=== PATIENT | male | born 1960 | race Caucasian/White ===

== ENCOUNTER 2017-10-02 17:13 | Emergency (ER) | payer OTHER ==
[~2017-10-02] VITALS: Ht 185.4 cm; Wt 93.0 kg
[~2017-10-02 17:13] MED LIST: GLIPPOW9; LISI40TA; METFORMIN
[2017-10-02 18:30] LABS: Albumin 4.3 g/dL (3.4-5.0); BUN/Creatinine Ratio 11.7; Calcium 9.2 mg/dL (8.5-10.1); Potassium 4.3 mmol/L (3.5-5.1)
[2017-10-02 18:33] LABS: Bilirubin, Total 0.5 mg/dL (0.2-1.0); Total Protein 8.6 g/dL (6.4-8.2)
[2017-10-02 18:39] LABS: Basophils # (auto) 0 uL; Basophils % (auto) 0.8 % (0.0-2.0); Eosinophils # (auto) 0.2 uL; Eosinophils % (auto) 2.7 % (0.0-7.0); Lymphocytes # (auto) 2.5 uL; Mean Corpuscular Hemoglobin 31.1 pg (28.0-32.0); Mean Corpuscular Volume 91.2 fL (80.0-100.0); Monocytes # (auto) 0.4 uL; Monocytes % (auto) 7.1 % (0.0-12.0); Neutrophils # (auto) 2.6 uL; Neutrophils % (auto) 45.4 % (37.0-80.0); Nucleated Red Blood Cells % 0.1 %; Platelet Count (auto) 231 10^3/uL (140-450); Red Blood Cells 4.82 10^6/uL (4.5-5.90); Red Cell Distribution Width 13.6 % (11.8-14.3); White Blood Cell 5.7 10^3/uL (4.4-10.8)
[2017-10-02] MEDS ORDERED: SODIUM CHLORIDE 0.9% 500 ML IVB ONE (18:53)
[2017-10-02] MEDS ORDERED: PANTOPRAZOLE 40 MG/10 ML VIAL IV STA (18:53)
[2017-10-02 22:57] VITALS: BP 119/75
[2017-10-03] MEDS ORDERED: HYDROcodone-ACET 7.5/325MG TAB PO ONE (00:15)
== END 2017-10-03 00:20 | disposition home or self-care (01) ==
LOC: ER 17:13
DX: K80.20 Calculus of gallbladder without cholecystitis without obstruction (principal); G43.A1 Cyclical vomiting, in migraine, intractable; E11.9 Type 2 diabetes mellitus without complications; I10 Essential (primary) hypertension
CPT/HCPCS: 36415; 74176; 76705; 80053; 82150; 83690; 85025; 94761; 96361; 96374; 99285; C9113; J7030; 93005

== ENCOUNTER → 2022-11-21 | Outpatient (CLI) | payer OTHER ==
[~2022-11-21] MED LIST changes: -LISI40TA; +LISI40TA16
[2022-11-21 15:06] LABS: Albumin 4.1 g/dL (3.4-5.0); Calcium 9.4 mg/dL (8.5-10.1); Potassium 4.1 mmol/L (3.5-5.1)
[2022-11-21 15:11] LABS: Bilirubin, Total 0.4 mg/dL (0.2-1.0); Total Protein 7.9 g/dL (6.4-8.2)
== END | disposition home or self-care (01) ==
LOC: LAB 14:01
PROVIDERS: ATTEND Internal Medicine
DX: E87.5 Hyperkalemia (principal); E83.52 Hypercalcemia
CPT/HCPCS: 36415; 80053

== ENCOUNTER 2024-05-08 13:48 | Inpatient (IN) | payer MEDICARE, OTHER ==
[~2024-05-08] VITALS: Ht 185.4 cm; Wt 86.5 kg
--- NOTE | 2024-05-08 14:09 | ED.PDOC ---
HPI Comments 63 year old male presents to the ED with chief complaint of palpitations. Patient reports that he has been experiencing palpitations with associated chest tightness/pressure for the past week. Patient relays that he had went to a hospital in [place] a week ago for the same complaint, but was discharged same day. Patient notes he had SOB with cough 2 weeks ago due to respiratory infection. Patient denies any dizziness, nausea, vomiting, headache, SOB, or numbness. Chief Complaint: Palpitations Time Seen by MD: 14:06 Reviewed Notes: Nurses Notes, Medications, Allergies Allergies: Coded Allergies: NO KNOWN ALLERGIES (Unverified , 02/04/10) Home Meds Reported Medications Lisinopril (Lisinopril) 40 Mg Tab 02/04/10 [Metformin] No Conflict Check 02/04/10 Glipizide (Glipizide) Pow 02/04/10 Information Source: Patient Mode of Arrival: Ambulatory Severity: Moderate Timing: Weeks Duration: Since onset Prehospital treatment: None Location: Chest (L) Quality: Pressure, Tightness Onset: At Rest Cardiac Risk Factors: HTN, Diabetes PE Risk Factors: None History of: None Associated Signs and Symptoms: SOB Past Medical History PAST MEDICAL HISTORY: DM, HTN Surgical History: Appendectomy, Hernia Repair, Tonsillectomy Family History Family History: Reviewed,noncontributory to illness Social History Smoker: Non-Smoker Alcohol: Occasionally Drugs: Denies Drug Use Lives In: Home Constitutional: denies: chills, diaphoresis, fatigue, fever, malaise, sweats, weakness, others EENTM: denies: blurred vision, double vision, ear bleeding, ear discharge, ear drainage, ear pain, ear ringing, eye pain, eye redness, hearing loss, mouth pain, mouth swelling, nasal discharge, nose bleeding, nose congestion, nose colleen n, photophobia, tearing, throat pain, throat swelling, voice changes, others Respiratory: denies: cough, hemoptysis, orthopnea, SOB at rest, shortness of breath, SOB with excertion, stridor, wheezing, others Cardiovascular: reports: chest pain, palpitations; denies: dizzy spells, diaphoresis, Dyspnea on exertion, edema, irregular heart beat, left arm pain, lightheadedness, PND, syncope, others Gastrointestinal: denies: abdomen distended, abdominal pain, blood streaked bowels, constipated, diarrhea, dysphagia, difficulty swallowing, hematemesis, melena, nausea, poor appetite, poor fluid intake, rectal bleeding, rectal pain, vomiting, others Genitourinary: denies: burning, dysuria, flank pain, frequency, hematuria, incontinence, penile discharge, penile sore, pain, testicle pain, testicle swelling, urgency, others Neurological: denies: dizziness, fainting, headache, left sided numbness, left sided weakness, numbness, paresthesia, pre-existing deficit, right sided numbness, right sided weakness, seizure, speech problems, tingling, tremors, weakness, others Musculoskeletal: denies: back pain, gout, joint pain, joint swelling, muscle pain, muscle stiffness, neck pain, others Integumetry: denies: bruises, change in color, change in hair/nails, dryness, laceration, lesions, lumps, rash, wounds, others Allergic/Immunocompromised: denies: Difficulty Healing, Frequent Infections, Hives, Itching, others Hematologic/Lymphatic: denies: anemia, blood clots, easy bleeding, easy bruising, swollen glands, others Endocrine: denies: excessive hunger, excessive sweating, excessive thirst, excessive urination, flushing, intolerance to cold, intolerance to heat, unexplained weight gain, unexplained weight loss, others Psychiatric: denies: anxiety, bipolar disorder, depression, hopeless, panic disorder, schizophrenia, sleepless, suicidal, others All Other Systems: Reviewed and Negative Physical Exam General Appearance: Moderate Distress, Normal HEENT: Normal ENT Inspection, PERRL/EOMI Neck: Full Range of Motion, Non-Tender, Normal, Normal Inspection Respiratory: Chest Non-Tender, Lungs Clear, No Accessory Muscle Use, No Respiratory Distress, Normal Breath Sounds Cardiovascular: No Edema, No JVD, No Murmur, No Gallop, Normal Peripheral Pulses, Regular Rate/Rhythm Breast Exam: Deferred Gastrointestinal: No Organomegaly, Non Tender, No Pulsatile Mass, Normal Bowel Sounds, Soft Genitalia: Deferred Pelvic: Deferred Rectal: Deferred Extremities: No calf tenderness, Normal capillary refill, Normal inspection, Normal range of motion, Non-tender, No pedal edema Musculoskeletal : Apperance: Normal Neurologic: Alert, quahogger II-XII nml as Tested, No Motor Deficits, Normal Affect, Normal Mood, No Sensory Deficits Cerebellar Function: Normal Reflexes: Normal Skin: Dry, Normal Color, Warm Peripheral Pulses: 3+ Radial (R), 3+ Radial (L) Lymphatic: No Adenopathy Was a procedure done? Was a procedure done?: No CP Differential Dx Differential Diagnosis: A-fib, A-Flutter, Angina, Anxiety / Panic Attack, Atrial Dysrhythmia, Electrolyte Disorder X-Ray, Labs, Meds, VS Vital Signs Date Time Temp Pulse Resp B/P (MAP) Pulse Ox O2 Delivery O2 Flow Rate FiO2 05/08/24 13:59 98.3 74 18 130/67 (88) 97 05/08/24 13:55 75 Lab Test 05/08/24 14:52 05/08/24 14:01 05/08/24 13:56 Range/Units Troponin I High Sensitivity < 3 L < 3 L </=54 ng/L White Blood Count 5.1 4.4-10.8 10^3/uL Red Blood Count 4.56 4.5-5.90 10^6/uL Hemoglobin 14.1 13.5-17.5 g/dL Hematocrit 40.6 L 41.0-53.0 % Mean Corpuscular Volume 89.1 80.0-100.0 fL Mean Corpuscular Hemoglobin 30.9 28.0-32.0 pg Mean Corpuscular Hemoglobin Concent 34.7 32.0-36.0 g/dL Red Cell Distribution Width 13.1 11.8-14.3 % Platelet Count 152 140-450 10^3/uL Mean Platelet Volume 8.0 6.9-10.8 fL Neutrophils (%) (Auto) 63.7 37.0-80.0 % Lymphocytes (%) (Auto) 23.3 10.0-50.0 % Monocytes (%) (Auto) 10.0 0.0-12.0 % Eosinophils (%) (Auto) 2.2 0.0-7.0 % Basophils (%) (Auto) 0.8 0.0-2.0 % Neutrophils # (Auto) 3.2 1.6-8.6 10 ^3/uL Lymphocytes # (Auto) 1.2 0.4-5.4 10 ^3/uL Monocytes # (Auto) 0.5 0-1.3 10 ^3/uL Eosinophils # (Auto) 0.1 0-0.8 10 ^3/uL Basophils # (Auto) 0 0-0.2 10 ^3/uL Nucleated Red Blood Cells 0.1 % Urine Color Yellow Yellow Urine Clarity Clear Clear Urine pH 5.5 5.0-9.0 Urine Specific [place] 1.024 1.001-1.035 Urine Protein Trace H Negative Urine Ketones Negative Negative Urine Blood Negative Negative /uL Urine Nitrite Negative Negative Urine Bilirubin Negative Negative Urine Urobilinogen Normal Negative mg/dL Urine Leukocyte Esterase Negative Negative /uL Urine RBC <1 0 - 3 /hpf Urine Microscopic WBC 1 0-3 /HPF Urine Squamous Epithelial Cells None seen <5 /hpf Urine Bacteria None seen None Seen /hpf Urine Mucus Few None Seen Urine Glucose 3+ H Normal mg/dL Sodium Level 135 L 136-145 mmol/L Potassium Level 4.9 3.5-5.1 mmol/L Chloride Level 103 98-107 mmol/L Carbon Dioxide Level 26 20-31 mmol/L Anion Gap 6 5-15 Blood Urea Nitrogen 18 9-23 mg/dL Creatinine 1.30 0.700-1.30 mg/dL Glomerular Filtration Rate Calc 61 >90 mL/min BUN/Creatinine Ratio 13.8 10.0-20.0 Serum Glucose 260 H 74-106 mg/dL Calcium Level 9.7 8.7-10.4 mg/dL Total Bilirubin 0.5 0.2-1.0 mg/dL Aspartate Amino Transferase (AST) 17 13-40 U/L Alanine Aminotransferase (ALT) 23 7-40 U/L Alkaline Phosphatase 82 46-116 U/L Total Protein 6.9 5.7-8.2 g/dL Albumin 4.7 3.2-4.8 g/dL POC Glucose 265 H 70-106 mg/dl Chest XR: FINDINGS: Lungs: Mild bibasilar atelectasis. No focal consolidation. No pneumothorax or pleural effusion. Cardiac: Heart size is within normal limits. Pulmonary vasculature: Unremarkable. Mediastinum/suzanna: Unremarkable. Bones: No acute osseous abnormality identified. Other: No other significant findings. IMPRESSION: No evidence of acute disease in the chest. Patient alert. Complaining of chest pain. Vitals stable. Answering questions. Chest x-ray reviewed does not show any acute changes. Blood sugar elevated. He has trace protein. Risk factors for coronary artery disease. Stress test. Echocardiogram. Cardiology consultation. Explained to the patient. Continue cardiac monitoring. Was given aspirin. EKG reviewed does not show any acute changes. Images Reviewed?: Images reviewed and evaluated by me Time of 1ST Reevaluation: 15:06 Reevaluation 1ST: Unchanged Patient Education/Counseling: Diagnosis, Treatment Family Education/Counseling: No Family Present Departure 1 Departure Time of Disposition: 14:52 Impression: Primary Impression: Chest pain of unknown etiology Additional Impressions: Uncontrolled diabetes mellitus Qualified Codes: E13.65 - Other specified diabetes mellitus with hyperglycemia Microalbuminuria Disposition: ADMITTED INPATIENT Admit to: Med Surg Condition: Guarded Critical Care Note Critical Care Time?: No Stability Stability form required: No Heart Score Heart Score: Heart Score Response (Comments) Value History Moderate Suspicious 1 EKG Normal 0 Age >65 2 Risk Factors >3 or Hx ASHD 2 Troponin Normal limit 0 Total 5 I personally scribed for MARJORIE SIU MD ([email or web address]) on 05/08/24 at 14:09. Electronically submitted by Modesto Weinstein ([email or web address]). I personally scribed for MARJORIE SIU MD ([email or web address]) on 05/08/24 at 14:39. Electronically submitted by Modesto Weinstein ([email or web address]). MARJORIE SIU MD May 08, 2024 14:09
[2024-05-08 14:18] LABS: Basophils # (auto) 0 10 ^3/uL (0-0.2); Basophils % (auto) 0.8 % (0.0-2.0); Eosinophils # (auto) 0.1 10 ^3/uL (0-0.8); Eosinophils % (auto) 2.2 % (0.0-7.0); Hematocrit 40.6 % (41.0-53.0); Hemoglobin 14.1 g/dL (13.5-17.5); Lymphocytes # (auto) 1.2 10 ^3/uL (0.4-5.4); Lymphocytes % (auto) 23.3 % (10.0-50.0); Mean Corpuscular Hemoglobin 30.9 pg (28.0-32.0); Mean Corpuscular Hgb Conc. 34.7 g/dL (32.0-36.0); Mean Corpuscular Volume 89.1 fL (80.0-100.0); Monocytes # (auto) 0.5 10 ^3/uL (0-1.3); Neutrophils # (auto) 3.2 10 ^3/uL (1.6-8.6); Neutrophils % (auto) 63.7 % (37.0-80.0); Nucleated Red Blood Cells % 0.1 %; Platelet Count (auto) 152 10^3/uL (140-450); Red Blood Cells 4.56 10^6/uL (4.5-5.90); Red Cell Distribution Width 13.1 % (11.8-14.3); White Blood Cell 5.1 10^3/uL (4.4-10.8)
--- NOTE | 2024-05-08 14:22 | DVH ---
CLINICAL INFORMATION: 63 years old, Male; PALPITATIONS. TECHNIQUE: Single AP portable chest radiograph was obtained. COMPARISON: None FINDINGS: Lungs: Mild bibasilar atelectasis. No focal consolidation. No pneumothorax or pleural effusion. Cardiac: Heart size is within normal limits. Pulmonary vasculature: Unremarkable. Mediastinum/suzanna: Unremarkable. Bones: No acute osseous abnormality identified. Other: No other significant findings. IMPRESSION: No evidence of acute disease in the chest.
[2024-05-08 14:27] LABS: Urine Bacteria None Seen /hpf (None Seen)
[2024-05-08 14:39] LABS: Alanine Aminotransferase 23 U/L (7-40); Albumin 4.7 g/dL (3.2-4.8); Alkaline Phosphatase 82 U/L (46-116); Calcium 9.7 mg/dL (8.7-10.4); Carbon Dioxide 26 mmol/L (20-31); Chloride 103 mmol/L (98-107); Potassium 4.9 mmol/L (3.5-5.1)
[2024-05-08 14:40] LABS: Anion Gap 6 (5-15); BUN/Creatinine Ratio 13.8 (10.0-20.0); Bilirubin, Total 0.5 mg/dL (0.2-1.0); Blood Urea Nitrogen 18 mg/dL (9-23); Total Protein 6.9 g/dL (5.7-8.2); Urine Blood Negative /uL (Negative); Urine Clarity Clear (Clear); Urine Color Yellow (Yellow); Urine Mucus FEW (None Seen); Urine Protein, UAD TRACE (Negative); Urine Specific Gravity 1.024 (1.001-1.035); Urine Squamous Epithelial Cell None Seen /hpf (<5); Urine Urobilinogen Normal (Negative); Urine WBC 1 /HPF (0-3); Urine pH 5.5 (5.0-9.0)
[2024-05-08 14:44] LABS: Glucose 260 mg/dL (74-106); Sodium 135 mmol/L (136-145)
[2024-05-08 14:48] LABS: Aspartate Aminotransferase 17 U/L (13-40)
[2024-05-08] MEDS ORDERED: MORPHINE SULFATE INJ 2 MG/ml SYRG IV PRN (21:00)
[2024-05-08] MEDS ORDERED: NITROGLYCERIN 0.4 MG SL TAB SL PRN (21:00)
[2024-05-08] MEDS ORDERED: DEXTROSE (50%) 50ML SYRG IV PRN (21:30)
[2024-05-08] MEDS ORDERED: ATORVASTATIN 20 MG TAB PO ONE (21:30)
[2024-05-08 21:33] VITALS: PULSE 69; RESP 16; O2SAT 98
[2024-05-08] MEDS: NITROGLYCERIN 0.4 MG SL TAB SL ONE (21:36)
[2024-05-08] MEDS: TAMSULOSIN HYDROCHLORIDE 0.4 MG CAP PO ONE (21:41)
[2024-05-08] MEDS: ASPirin 325 MG TAB PO ONE (21:42)
[2024-05-08] MEDS: ACCU-CHEK COMFORT CURVE STRIP VI SCH (21:42)
[2024-05-08] MEDS: LISINOPRIL 20 MG TAB PO ONE (21:42)
[2024-05-08] MEDS: ATORVASTATIN 20 MG TAB PO SCH (21:49)
[2024-05-08] MEDS: InsuLIN REG 1unit/0.01ml Soln (100units/ml) SC SCH (21:49)
--- NOTE | 2024-05-08 21:52 | DVHHPRES ---
History of Present Illness Resident Creating Document: PRIMITIVO KAMINSKI RESIDENT Reason for Visit: Palpitations and chest pain History of Present Illness This is a 63-year-old male who comes in to the ED with chief complain of palpitations and chest pain. He has a past medical history relevant for hypertension, type 2 diabetes, BPH. He currently takes lisinopril 20 mg p.o. q.d., metformin, insulin, tamsulosin. He is an ex-smoker, drinks alcohol occasionally and denies any illicit drug use. Patient states that since last week he has been experiencing episodes of palpitations associated with chest pain, he stated that these episodes occur around 3 times per day and last about 15-20 minutes. It mainly occurs on exertion and it is relieved by rest. He states that the chest pain is pressure- like, midsternal, localized, associated with headaches and shortness of breath as well as generalized weakness. He currently denies any chest pain, dizziness, lightheadedness, abdominal pain, nausea, vomiting, diarrhea, chills, general malaise, fever multiple, shortness for breath. On the ED patient was assessed, EKG was unremarkable, chest x-ray was unremarkable, troponins were normal, chest pain subsided without any intervention. Patient states that two weeks ago he was also sick due to upper respiratory infection, he also stated his is currently sick with the same illness. Cardiovascular: HTN Endocrine: Diabetes Past Surgical History: Appendectomy, Hernia Repair, Tonsillectomy Smoke: Quit ALCOHOL: occassional Drugs: None Review of Systems Constitutional: No: Fever, Chills, Sweats, Weakness, Malaise, Other Eyes: No: Pain, Vision change, Conjunctivae inflammation, Eyelid inflammation, Other, Redness ENT: No: Ear pain, Ear discharge, Nose pain, Nose discharge, Nose congestion, Mouth pain, Mouth swelling, Throat pain, Throat swelling, Other Respiratory: Cough, Shortness of breath, SOB with excertion; No: Dry, Wheezing, Hemoptysis, Pleuritic Pain, Sputum, Wheezing, Other Cardiovascular: Chest Pain, Palpitations; No: Orthopnea, Paroxysmal Noc. Dyspnea, Edema, Lt Headedness, Other Gastrointestinal: No: Nausea, Vomiting, Abdominal Pain, Diarrhea, Constipation, Melena, Hematochezia, Other Genitourinary: No Dysuria, No Frequency, No Incontinence, No Hematuria, No Retention, No Other Musculoskeletal: No: other, neck pain, shoulder pain, arm pain, back pain, hand pain, leg pain, foot pain Skin: No: Rash, Lesions, Jaundice, Bruising, Other Neurological: No: Weakness, Numbness, Incoordination, Change in speech, Confusion, Seizures, Other Allergies: Coded Allergies: NO KNOWN ALLERGIES (Unverified , 02/04/10) Medications Current Medications Medications Dose Ordered Sig/Mildred Route Start Time Stop Time Status Last Admin Dose Admin Nitroglycerin 0.4 mg Q5MINP PRN SL 05/08/24 21:00 Morphine Sulfate 2 mg Q30M PRN IV 05/08/24 21:00 Exam Vital Signs Vital Signs Date Time Temp Pulse Resp B/P (MAP) Pulse Ox O2 Delivery O2 Flow Rate FiO2 05/08/24 21:33 99.1 69 16 142/77 (98) 98 99.1 General Appearance: Alert, Oriented X3, Cooperative, No acute distress HEENT: Atraumatic, PERRLA, EOMI, Mucous membr. moist/pink Respiratory: Clear to auscultation, Normal air movement Cardiovascular: Regular rate, Normal S1, Normal S2, No murmurs Abdominal: Normal bowel sounds, Soft, No tenderness, No hepatospenomegaly Extremities: No clubbing, No cyanosis, No edema, Normal pulses Skin: No rashes, No breakdown, No significant lesion Neuro: Normal gait, Normal speech, Strength at 5/5 X4 ext, Normal tone Psych/Mental Status: Mental status NL, Mood NL Labs/Xrays Labs Test 05/08/24 14:52 05/08/24 14:01 05/08/24 13:56 Range/Units Troponin I High Sensitivity < 3 L </=54 ng/L White Blood Count 5.1 4.4-10.8 10^3/uL Red Blood Count 4.56 4.5-5.90 10^6/uL Hemoglobin 14.1 13.5-17.5 g/dL Hematocrit 40.6 L 41.0-53.0 % Mean Corpuscular Volume 89.1 80.0-100.0 fL Mean Corpuscular Hemoglobin 30.9 28.0-32.0 pg Mean Corpuscular Hemoglobin Concent 34.7 32.0-36.0 g/dL Red Cell Distribution Width 13.1 11.8-14.3 % Platelet Count 152 140-450 10^3/uL Mean Platelet Volume 8.0 6.9-10.8 fL Neutrophils (%) (Auto) 63.7 37.0-80.0 % Lymphocytes (%) (Auto) 23.3 10.0-50.0 % Monocytes (%) (Auto) 10.0 0.0-12.0 % Eosinophils (%) (Auto) 2.2 0.0-7.0 % Basophils (%) (Auto) 0.8 0.0-2.0 % Neutrophils # (Auto) 3.2 1.6-8.6 10 ^3/uL Lymphocytes # (Auto) 1.2 0.4-5.4 10 ^3/uL Monocytes # (Auto) 0.5 0-1.3 10 ^3/uL Eosinophils # (Auto) 0.1 0-0.8 10 ^3/uL Basophils # (Auto) 0 0-0.2 10 ^3/uL Nucleated Red Blood Cells 0.1 % Urine Color Yellow Yellow Urine Clarity Clear Clear Urine pH 5.5 5.0-9.0 Urine Specific [place] 1.024 1.001-1.035 Urine Protein Trace H Negative Urine Ketones Negative Negative Urine Blood Negative Negative /uL Urine Nitrite Negative Negative Urine Bilirubin Negative Negative Urine Urobilinogen Normal Negative mg/dL Urine Leukocyte Esterase Negative Negative /uL Urine RBC <1 0 - 3 /hpf Urine Microscopic WBC 1 0-3 /HPF Urine Squamous Epithelial Cells None seen <5 /hpf Urine Bacteria None seen None Seen /hpf Urine Mucus Few None Seen Urine Glucose 3+ H Normal mg/dL Sodium Level 135 L 136-145 mmol/L Potassium Level 4.9 3.5-5.1 mmol/L Chloride Level 103 98-107 mmol/L Carbon Dioxide Level 26 20-31 mmol/L Anion Gap 6 5-15 Blood Urea Nitrogen 18 9-23 mg/dL Creatinine 1.30 0.700-1.30 mg/dL Glomerular Filtration Rate Calc 61 >90 mL/min BUN/Creatinine Ratio 13.8 10.0-20.0 Serum Glucose 260 H 74-106 mg/dL Calcium Level 9.7 8.7-10.4 mg/dL Total Bilirubin 0.5 0.2-1.0 mg/dL Aspartate Amino Transferase (AST) 17 13-40 U/L Alanine Aminotransferase (ALT) 23 7-40 U/L Alkaline Phosphatase 82 46-116 U/L Total Protein 6.9 5.7-8.2 g/dL Albumin 4.7 3.2-4.8 g/dL POC Glucose 265 H 70-106 mg/dl Assessment/Plan Assessment/Plan #Chest pain, typical, likely due to Unstable angina Cardiac diet now and keep NPO after midnight Aspirin 325 mg p.o. once, and continue with aspirin 81 mg p.o. q.d. Lipitor 80 mg p.o. HS Lisinopril 20 mg p.o. q.d. Order lipid panel, TSH Morphine IV p.r.n. Nitroglycerin SL p.r.n. Pending COVID and flu test Pending UDS Order echocardiogram Ordered cardiology consult for possible angiogram #Type 2 diabetes, uncontrolled Pending hemoglobin A1c SSI moderate a.c. HS #Hypertension, controlled Lisinopril 20 mg p.o. q.d. #BPH Continue Tamsulosin Goals of care were discussed for 30 minutes. Full code. Case was discussed with Dr. Muniz Plan discussed with: Patient My Orders Orders - PRIMITIVO KAMINSKI RESIDENT Procedure Category Date Status Time Admit ADMIT 05/08/24 Transmitted 20:59 Nitroglycerin [facility] 05/08/24 In Process Sublingual (Ntrostat 21:00 Morphine Sulfate [facility] 05/08/24 In Process Injection 21:00 Notify Of Changes [facility] 05/08/24 In Process From Base 20:59 Group Sales Representative For [facility] 05/08/24 In Process 24 Hours 20:59 Emergency Dysrhythmia [facility] 05/08/24 In Process Protocol 20:59 Rhythm Strips Once [facility] 05/08/24 In Process Every Shift 20:59 Cardiac DIET 05/09/24 Transmitted Diet-2gna,Lofat,Lochol Breakfast Npo After Midnight DIET 05/09/24 Transmitted Breakfast Glucose Blood [facility] 05/08/24 Transmitted (Accu-Chek Comfort 22:00 Bedtime Insulin Scale PH[facility] 05/08/24 Transmitted 22:00 Moderate Insulin Ss PH[facility] 05/09/24 Transmitted 07:00 Dextrose 50% Syringe PHA 05/08/24 Transmitted 21:30 Lisinopril Tablet PHA 05/08/24 Transmitted (Zestril Tablet) 21:30 Lisinopril Tablet PHA 05/09/24 Transmitted (Zestril Tablet) 10:00 Aspirin Tablet PHA 05/09/24 Transmitted 10:00 Atorvastatin (Lipitor) PHA 05/08/24 Transmitted 21:30 Atorvastatin (Lipitor) PHA 05/08/24 Transmitted 22:00 Complete Blood Count LAB 05/09/24 Verified 04:00 Basic Metabolic Panel LAB 05/09/24 Verified 04:00 Hemoglobin A1c LAB 05/08/24 Transmitted 21:25 Drug Screen LAB 05/08/24 Transmitted 21:25 PTPTT LAB 05/08/24 Transmitted 21:25 Troponin-I Hs LAB 05/09/24 Verified 04:00 Tamsulosin PHA 05/08/24 Transmitted Hydrochloride (Flomax) 21:30 Tamsulosin PHA 05/09/24 Transmitted Hydrochloride (Flomax) 18:00 Covid19 Antigen Radha LAB 05/08/24 Transmitted Rapid Influenza A&B LAB 05/08/24 Transmitted 21:25 * Cardiology Consult CONS 05/08/24 Transmitted 21:25 Thyroid Stimulating LAB 05/08/24 Transmitted Hormone 21:25 Lipid Panel LAB 05/08/24 Transmitted 21:25 Echo 2d Mode Cardiac US 05/08/24 Transmitted DOP 21:25 Erythrocyte LAB 05/08/24 Transmitted Sedimentation Rate 21:25 C-Reactive Protein LAB 05/08/24 Transmitted 21:25 Date of Service: May 08, 2024 Billing Provider: GONZALO MUNIZ MD Common Visit Codes: [id number] INP/OBS CARE (HIGH) Secondary Visit Codes: 62802-[id number] CARE PLAN 30 MINUTES PRIMITIVO KAMINSKI RESIDENT May 08, 2024 21:52 GONZALO MUNIZ MD May 09, 2024 23:07
[2024-05-08 22:17] LABS: CRP High Sensitivity 0.38 mg/dL (<1.0)
[2024-05-08 22:28] LABS: INR 1.01 (0.9-1.15); Partial Thromboplastin Time 22.5 SEC (24.5-34.5); Prothrombin Time 10.7 sec (9.3-11.8)
[2024-05-08 22:45] LABS: Erythrocyte Sedimentation Rate 16 mm/hr (0-20)
[2024-05-09] VITALS (9 sets, daily range): BP systolic 108–131; BP diastolic 54–65; PULSE 55–72; RESP 12–20; TEMP 98–99.3; O2SAT 93–98
[2024-05-09] MEDS ORDERED: LISI20TA56 PO (00:10)
[2024-05-09] MEDS ORDERED: INSR100KIT IV (00:10)
[2024-05-09] MEDS ORDERED: METF-372 PO (00:10)
[2024-05-09] MEDS ORDERED: TAMS-35 PO (00:10)
[2024-05-09 02:57] LABS: COVID19 ANTIGEN SOFIA FIA NEGATIVE (NEGATIVE)
[2024-05-09] MEDS: InsuLIN REG 1unit/0.01ml Soln (100units/ml) SC SCH (06:08)
[2024-05-09 06:53] LABS: Rapid Influenza B Negative (Negative)
[2024-05-09 06:57] LABS: Rapid Influenza A Positive (Negative)
--- NOTE | 2024-05-09 07:02 | ECG ---
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
[2024-05-09 07:45] LABS: Basophils # (auto) 0 10 ^3/uL (0-0.2); Basophils % (auto) 0.6 % (0.0-2.0); Eosinophils # (auto) 0.1 10 ^3/uL (0-0.8); Eosinophils % (auto) 2.7 % (0.0-7.0); Hematocrit 38.4 % (41.0-53.0); Hemoglobin 12.9 g/dL (13.5-17.5); Lymphocytes # (auto) 1.1 10 ^3/uL (0.4-5.4); Lymphocytes % (auto) 31.7 % (10.0-50.0); Mean Corpuscular Hemoglobin 30.1 pg (28.0-32.0); Mean Corpuscular Hgb Conc. 33.7 g/dL (32.0-36.0); Mean Corpuscular Volume 89.2 fL (80.0-100.0); Monocytes # (auto) 0.4 10 ^3/uL (0-1.3); Monocytes % (auto) 10.9 % (0.0-12.0); Neutrophils # (auto) 1.9 10 ^3/uL (1.6-8.6); Neutrophils % (auto) 54.1 % (37.0-80.0); Nucleated Red Blood Cells % 0.1 %; Platelet Count (auto) 129 10^3/uL (140-450); White Blood Cell 3.4 10^3/uL (4.4-10.8)
[2024-05-09 07:49] LABS: Anion Gap 5 (5-15); Carbon Dioxide 25 mmol/L (20-31); Chloride 106 mmol/L (98-107); Potassium 4.4 mmol/L (3.5-5.1); Sodium 136 mmol/L (136-145)
[2024-05-09 07:52] LABS: Calcium 9.4 mg/dL (8.7-10.4)
[2024-05-09 08:02] LABS: Glucose 233 mg/dL (74-106)
[2024-05-09 08:29] LABS: BUN/Creatinine Ratio 13.6 (10.0-20.0); Blood Urea Nitrogen 15 mg/dL (9-23)
[2024-05-09] MEDS: MAGNESIUM SULFATE 1GM/100ML 100 ML IV SCH (10:04)
--- NOTE | 2024-05-09 11:12 | DVHINCON2 ---
Date Seen: May 09, 2024 Referring Physician MD William resident Reason for Consultation Unstable angina History of Present Illness This is a 63-year-old male patient who presents to emergency room with chief complaint of palpitations. The patient reports that he initially began experiencing palpitations eight days ago while in [place]. He reports he was climbing a ladder when suddenly he began to feel palpitations. He states he drove to [place] to a hospital to be assessed. He states that the palpitations subsided so he left the hospital. He reports that the palpitations began again approximately two days ago and have been intermittent so now he comes to the emergency room for further evaluation. He also mentions occasional chest pain. He describes the pain as provoked with exertion and deep inhalation, pressure-like in nature, midsternal, and nonradiating. He denies any associated symptoms such as shortness of breath, lightheadedness or dizziness. Cardiology has now been consulted for further workup. Initial twelve lead electrocardiogram reveals normal sinus rhythm with nonspecific ST segment changes to inferior leads and artifact. Serial troponin levels have been negative. Significant past medical history includes hypertension, dyslipidemia, type 2 diabetes mellitus, and benign prostatic hyperplasia. Past Medical History Past medical history reviewed. No other significant than mentioned above. Past Surgical History Right rotator cuff repair Multiple surgeries to left leg Family History: Patient reports no known family medical history. Family History Family history reviewed. Social History The patient has a five pack-year history, quit smoking approximately 20 years ag o Patient denies any alcohol use Patient denies any illicit drug use Allergies: Coded Allergies: NO KNOWN ALLERGIES (Unverified , 02/04/10) Home Meds Reported Medications Insulin Regular (Human) (INSULIN DRIP KIT (OPEN HEART ONLY)) 100 Units/100 Ml Iv, 100 UNITS IV, INJ 05/09/24 Lisinopril (Lisinopril) 20 Mg Tab, 1 TAB PO DAILY, #30 TAB 5 Refills 05/09/24 Tamsulosin Hcl (Flomax) 0.4 Mg Cap, 0.4 MG PO, CAP 05/09/24 Metformin Hydrochloride (Metformin Hcl) 1,000 Mg Tab, 1 TAB PO BID, #60 TAB 5 Refills 05/09/24 Home Meds Home medications reviewed. Current Medications Current Medications Medications (Trade) Dose Ordered Sig/Mildred Route PRN Reason Start Time Stop Time Status Last Admin Nitroglycerin (Ntrostat Sublingual) 0.4 mg Q5MINP PRN SL FOR CHEST PAIN 05/08/24 21:00 Morphine Sulfate 2 mg Q30M PRN IV FOR CHEST PAIN 05/08/24 21:00 Diagnostic Test (Pha) (Accu-Chek Comfort Curve T) 1 strip ACHS 05/08/24 22:00 05/09/24 06:06 Insulin Human Regular (InsuLIN R) HS SC 05/08/24 22:00 05/08/24 21:49 Insulin Human Regular (InsuLIN R) AC SC 05/09/24 07:00 05/09/24 06:08 Dextrose 50 ml UD PRN IV Blood Sugar LESS THAN 60 05/08/24 21:30 Lisinopril (Zestril Tablet) 20 mg DAILY PO 05/09/24 10:00 Aspirin 81 mg DAILY PO 05/09/24 10:00 Atorvastatin Calcium (Lipitor) 80 mg HS PO 05/08/24 22:00 05/08/24 21:49 Tamsulosin HCl (Flomax) 0.4 mg QPM PO 05/09/24 18:00 Oseltamivir Phosphate (Tamiflu 75MG Capsule) 75 mg Q12HR PO 05/09/24 10:00 05/14/24 09:59 Magnesium Sulfate/ Dextrose 100 ml @ 100 mls/hr Q1HR IV 05/09/24 09:00 05/09/24 10:59 DC 05/09/24 10:04 Insulin Glargine (Lantus) 15 units DAILY@1000 SC 05/10/24 10:00 Review of Systems Constitutional: No symptom reported Ears, Nose, & Throat: No symptom reported Eyes: No symptom reported Neurological: No symptoms reported Pulmonary/Respiratory: No symptoms reported Cardiovascular: Palpitations Gastrointestinal: No symptom reported Genitourinary: No symptom reported Musculoskeletal: No symptom reported Skin: No symptom reported Psychiatric: No symptom reported Endocrine: No symptom reported Hematologic/Lymphatic: No symptom reported Vital Signs Vital Signs Date Time Temp Pulse Resp B/P (MAP) Pulse Ox O2 Delivery O2 Flow Rate FiO2 05/09/24 08:00 98 Room Air* 0 21 05/09/24 08:00 70 05/09/24 04:46 98.2 14 121/60 (80) 98.2 Physical Exam General Appearance: Cooperative. Well-developed. Well-nourished. No acute distress. Pulmonary/Respiratory: Clear, bilateral breaths sounds. Cardiovascular/Chest: Regular rate and rhythm. Peripheral Pulses: 2+ Radial (R). 2+ Radial (L). 2+ Pedal (R). 2+ Pedal (L) Abdominal Exam: Normal bowel sounds. Ankle Exam: Negative ankle edema Lower extremities: Negative lower extremity edema Neuro/Mental Status: A/OX4, coherent. Thoughts/Psych: Normal thought pattern. Appropriate mood and affect. Good judgment and insight. Appearance: No acute distress. Skin Exam: Normal inspection. Normal color. Warm and dry. Labs/Diagnostic Data Labs Test 05/09/24 06:20 05/09/24 06:04 05/09/24 04:00 05/09/24 02:00 Range/Units White Blood Count 3.4 #L 4.4-10.8 10^3/uL Red Blood Count 4.30 L 4.5-5.90 10^6/uL Hemoglobin 12.9 L 13.5-17.5 g/dL Hematocrit 38.4 L 41.0-53.0 % Mean Corpuscular Volume 89.2 80.0-100.0 fL Mean Corpuscular Hemoglobin 30.1 28.0-32.0 pg Mean Corpuscular Hemoglobin Concent 33.7 32.0-36.0 g/dL Red Cell Distribution Width 13.0 11.8-14.3 % Platelet Count 129 L 140-450 10^3/uL Mean Platelet Volume 8.5 6.9-10.8 fL Neutrophils (%) (Auto) 54.1 37.0-80.0 % Lymphocytes (%) (Auto) 31.7 10.0-50.0 % Monocytes (%) (Auto) 10.9 0.0-12.0 % Eosinophils (%) (Auto) 2.7 0.0-7.0 % Basophils (%) (Auto) 0.6 0.0-2.0 % Neutrophils # (Auto) 1.9 1.6-8.6 10 ^3/uL Lymphocytes # (Auto) 1.1 0.4-5.4 10 ^3/uL Monocytes # (Auto) 0.4 0-1.3 10 ^3/uL Eosinophils # (Auto) 0.1 0-0.8 10 ^3/uL Basophils # (Auto) 0 0-0.2 10 ^3/uL Nucleated Red Blood Cells 0.1 % Sodium Level 136 136-145 mmol/L Potassium Level 4.4 3.5-5.1 mmol/L Chloride Level 106 98-107 mmol/L Carbon Dioxide Level 25 20-31 mmol/L Anion Gap 5 5-15 Blood Urea Nitrogen 15 9-23 mg/dL Creatinine 1.10 0.700-1.30 mg/dL Glomerular Filtration Rate Calc 75 >90 mL/min BUN/Creatinine Ratio 13.6 10.0-20.0 Serum Glucose 233 H 74-106 mg/dL Calcium Level 9.4 8.7-10.4 mg/dL Magnesium Level 1.5 L 1.6-2.6 mg/dL Troponin I High Sensitivity < 3 L </=54 ng/L POC Glucose 226 H 70-106 mg/dl Influenza Type A Antigen Positive Negative Influenza Type B Antigen Negative Negative SARS-CoV-2 Antigen (Rapid) Negative NEGATIVE Test 05/08/24 21:52 05/08/24 14:01 Range/Units Erythrocyte Sedimentation Rate 16 0-20 mm/hr Prothrombin Time 10.7 9.3-11.8 sec Prothrombin Time INR 1.01 0.9-1.15 Activated Partial Thromboplast Time 22.5 L 24.5-34.5 SEC Hemoglobin A1c 11.0 H <5.7 % A1C C-Reactive Protein High Sensitivity 0.38 <1.0 mg/dL Triglycerides Level 78 < 150 mg/dL Cholesterol Level 138 < 200 mg/dL LDL Cholesterol 79 < 100 mg/dL HDL Cholesterol 49 40-59 mg/dL Thyroid Stimulating Hormone (TSH) 1.73 0.55-4.78 uIU/mL Urine Color Yellow Yellow Urine Clarity Clear Clear Urine pH 5.5 5.0-9.0 Urine Specific [place] 1.024 1.001-1.035 Urine Protein Trace H Negative Urine Ketones Negative Negative Urine Blood Negative Negative /uL Urine Nitrite Negative Negative Urine Bilirubin Negative Negative Urine Urobilinogen Normal Negative mg/dL Urine Leukocyte Esterase Negative Negative /uL Urine RBC <1 0 - 3 /hpf Urine Microscopic WBC 1 0-3 /HPF Urine Squamous Epithelial Cells None seen <5 /hpf Urine Bacteria None seen None Seen /hpf Urine Mucus Few None Seen Urine Glucose 3+ H Normal mg/dL Total Bilirubin 0.5 0.2-1.0 mg/dL Aspartate Amino Transferase (AST) 17 13-40 U/L Alanine Aminotransferase (ALT) 23 7-40 U/L Alkaline Phosphatase 82 46-116 U/L Total Protein 6.9 5.7-8.2 g/dL Albumin 4.7 3.2-4.8 g/dL Assessment Chest pain, rule out coronary ischemia Palpitations, rule out cardiac arrhythmia Influenza type A positive Hypertension Dyslipidemia Type 2 diabetes mellitus, uncontrolled (Hgb A1c 11.0%) BPH Plan/Recommendation We will continue with the following plan/recommendations (Dr. Shafer): * Echocardiogram reveals EF 60-65% without any regional wall motion abnormalities * Chest pain protocol * HEART score: 3 points * Blood pressure control * Lipid-lowering agent * Nuclear stress test Case discussed with . We will schedule the patient for a nuclear stress test at first availability on 05/09/24. Thank you for allowing us to care for this patient. Please call with any questions or concerns. Critical care time spent: 41 minutes This medical document was created using an electronic medical record system with voice recognition software and computerized dictation system. Although this document has been carefully reviewed, there might still be some phonetic and typographical errors. Occasional wrong-word or ``sound-alike substitutions may have occurred due to the inherent limitations of voice recognition software. These areas are purely typographical due to imperfections of the software programs and do not reflect any compromise in the patient's medical care. Please read the chart carefully and recognize, using context, where these s ubstitutions have occurred. Plan discussed with: Patient NYHA Physical activity limitations: NA Date of Service: May 09, 2024 Billing Provider: JOSE ANGEL SHAFER MD Cardiology Common Codes: [id number] INP/OBS CARE (High) Cardiology Consultation Codes: [id number] CONSULT <45MIN DEVIN RUIZ ACCOUNT ASSISTANT May 09, 2024 11:12
--- NOTE | 2024-05-09 11:36 | DVHSR ---
APPROVED REPORT EXAM: Two-dimensional and M-mode echocardiogram with Doppler and color Doppler. Blood Pressure: 121/60 mmHg INDICATION Unstable angina RISK FACTORS Height: 6'1", Weight: 190 DIMENSIONS LVDd5.2 (3.8-5.7cm)LA (2D)3.8 (1.9-4.0cm)Aortic Root3.3 (2.0-3.7cm) LVDs3.8 (2.5-4.0cm)LA (MM) (1.9-4.0cm)Aortic Cusp Exc2.2 (1.5-2.0cm) EF (%) 60.0 (55-70%)Rt. Atrium4.0 (1.9-4.0cm)Asc. Aorta3.3 cm IVSd0.7 (0.7-1.1cm)RV (D)3.9 (1.8-2.4cm) PWd1.0 (0.7-1.1cm) Mitral Valve MitralMitral Stenosis E wave0.88m/sMV Mean GR.mmHg A wave0.89m/sMV Peak GR.mmHg E/A ratio1.02D MVAcm2 DECEL [id number] 1/2 Timems Aortic Valve Aortic ValveAortic Stenosis V11.40m/Brittany Mean GR.5mmHg V21.47m/Brittany Peak GR.9mmHg LVOT Diameter2.4 (1.8-2.4cm)Doppler AVA4.31cm2 Pulmonic Valve V20.92m/s Tricuspid Valve TR Velocity2.28m/s [id number] LEFT VENTRICLE The left ventricle is of normal size. Wall thickness is normal. Ejection fraction is normal and is estimated at 60-65%. There is no regional wall motion abnormalities. Diastolic function is indeterm inate. E to E prime ratio is in the indeterminate range. RIGHT VENTRICLE The right ventricle is of normal size. Systolic function is normal. ATRIA Both atria are of normal size. MITRAL VALVE Normal structure and function. No significant mitral regurgitation. PULMONIC VALVE Likely normal. TRICUSPID VALVE Normal structure and function. There is trace tricuspid regurgitation. PA systolic pressure is leyla mated at 25-30 mm Hg. AORTIC VALVE Normal in structure and function. GREAT VESSELS The aortic root and proximal ascending aorta are of normal size. PERICARDIAL EFFUSION No significant pericardial effusion. IVC is of normal size and collapses normally with inspiration. Other Information Quality : Technically LimitedRhythm : Technically limited study due to body habitus. Conclusion Normal left ventricular size and systolic function. Ejection fraction is estimated at 60-65%. Normal right ventricular size and systolic function. No hemodynamically significant valvular disease. No evidence of pulmonary hypertension.
[2024-05-09] MEDS: REGADENOSON 0.4 MG/5 ML SYRG IV ONE ×2 (12:28→12:35)
--- NOTE | 2024-05-09 12:52 | ECG ---
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
[2024-05-09] MEDS: ASPirin 81 mg TAB PO SCH (13:38)
[2024-05-09] MEDS: OSELTAMIVIR 75 MG CAP PO SCH (13:39)
--- NOTE | 2024-05-09 15:23 | DVHSR ---
APPROVED REPORT Exam: Nuclear Stress Test BMI: 0 Stress Test Details HR Max Heart Rate (APMHR): 155 bpm Target HR (85% APMHR): 132 bpm BP ECG Stress ECG Conclusion Review of the myocardial perfusion images demonstrated a moderate size area of moderate intensity red uced radiotracer uptake in the inferior wall and inferior apex. This appears to be more intense in t he resting images. Otherwise, there is homogeneous radiotracer uptake throughout the rest of the lef t ventricular myocardium. Left ventricular volumes are normal. Ejection fraction is normal and is e stimated at 59%. No gated images are available to assess for wall motion. Impression: 1. Fixed defect in the inferior wall and inferior-apex that could represent prior infarction versus a ttenuation artifact. 2. Normal left ventricular systolic function. NM EXAM: Myocardial Perfusion REST/STRESS Imaging Protocol: Rest Tc-99m/Stress Tc-99m 1 day Resting Data Rest SPECT myocardial perfusion imaging was performed in supine position 60 minutes following the int ravenous injection of 12 mCi of Tc-99m Sestamibi. Time of rest injection: 1157 Time of rest imagin Administration Route: IV Administration Site: Left Hand Pharmacologic Stress Pharmacologic stress test was performed by injecting Regadenoson 0.4 mg IV push followed by the intra venous injection of 32 mCi of Tc-99m Sestamibi. Time of stress injection: 1236 Time of stress imagin Administration Route: IV Administration Site: Left Hand Gated Stress SPECT was performed 60 minutes after stress injection. The images were gated to evaluate regional wall motion and calculate left ventricular ejection fracti on. Stress only was performed in the Supine position. Nuclear Conclusion ECG Findings: negative for ischemia Clinical Findings: negative for ischemia Nuclear Findings: negative for ischemia Exercise Capacity: not assessed Left Ventricular Function: normal Risk Study: low Review of the myocardial perfusion images demonstrated a moderate size area of moderate intensity red uced radiotracer uptake in the inferior wall and inferior apex. This appears to be more intense in t he resting images. Otherwise, there is homogeneous radiotracer uptake throughout the rest of the lef t ventricular myocardium. Left ventricular volumes are normal. Ejection fraction is normal and is e stimated at 59%. No gated images are available to assess for wall motion. Impression: 1. Fixed defect in the inferior wall and inferior-apex that could represent prior infarction versus a ttenuation artifact. 2. Normal left ventricular systolic function.
[2024-05-09] MEDS: LISINOPRIL 20 MG TAB PO SCH (15:27)
[2024-05-09] MEDS: INSULIN LANTUS (GLARGINE) 1 /0.01ml (100units/ml) SC ONE (15:28)
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
[2024-05-09] MEDS: SODIUM CHLORIDE 0.9% 1,000 ML IV ONE (17:36)
[2024-05-09] MEDS: AZITHROMYCIN 250 MG TAB PO ONE (17:38)
[2024-05-09] MEDS: TAMSULOSIN HYDROCHLORIDE 0.4 MG CAP PO SCH (17:39)
[2024-05-09] MEDS: ATORVASTATIN 20 MG TAB PO SCH (21:22)
[2024-05-10] VITALS (7 sets, daily range): BP systolic 96–132; BP diastolic 55–72; PULSE 48–63; RESP 17–20; TEMP 36.8; O2SAT 93–96
[2024-05-10] MEDS: ACETAMINOPHEN 325 MG TAB PO ONE (00:04)
[2024-05-10 06:04] LABS: Basophils # (auto) 0 10 ^3/uL (0-0.2); Basophils % (auto) 0.5 % (0.0-2.0); Eosinophils # (auto) 0.1 10 ^3/uL (0-0.8); Eosinophils % (auto) 2.7 % (0.0-7.0); Hematocrit 39.3 % (41.0-53.0); Hemoglobin 13.3 g/dL (13.5-17.5); Lymphocytes # (auto) 1.5 10 ^3/uL (0.4-5.4); Lymphocytes % (auto) 43.5 % (10.0-50.0); Mean Corpuscular Hemoglobin 30.4 pg (28.0-32.0); Mean Corpuscular Volume 89.4 fL (80.0-100.0); Monocytes # (auto) 0.3 10 ^3/uL (0-1.3); Monocytes % (auto) 8.6 % (0.0-12.0); Neutrophils # (auto) 1.5 10 ^3/uL (1.6-8.6); Neutrophils % (auto) 44.7 % (37.0-80.0); Nucleated Red Blood Cells % 0.1 %; Platelet Count (auto) 116 10^3/uL (140-450); Red Blood Cells 4.39 10^6/uL (4.5-5.90); Red Cell Distribution Width 12.9 % (11.8-14.3); White Blood Cell 3.4 10^3/uL (4.4-10.8)
[2024-05-10 06:15] LABS: Anion Gap 8 (5-15); Carbon Dioxide 25 mmol/L (20-31); Chloride 103 mmol/L (98-107); Potassium 4.1 mmol/L (3.5-5.1); Sodium 136 mmol/L (136-145)
[2024-05-10 06:17] LABS: Calcium 9.4 mg/dL (8.7-10.4)
[2024-05-10 06:22] LABS: BUN/Creatinine Ratio 12.5 (10.0-20.0); Blood Urea Nitrogen 13 mg/dL (9-23); Glucose 167 mg/dL (74-106)
[2024-05-10] MEDS: AZITHROMYCIN 250 MG TAB PO SCH (10:53)
[2024-05-10] MEDS: INSULIN LANTUS (GLARGINE) 1 /0.01ml (100units/ml) SC SCH (11:10)
[2024-05-10] MEDS ORDERED: TAMIFLU PO (15:29)
--- NOTE | 2024-05-10 15:33 | DVHDS2 ---
Discharge Summary Date of Admission May 08, 2024 at 20:59 Date of Discharge: May 10, 2024 Admitting Diagnosis # acute chest pain, rule out ACS # palpitations likely due to dehydration with underlying influenza infection # influenza infection # uncontrolled type 2 diabetes mellitus with hyperglycemia # hypertension controlled # BPH # hypomagnesemia Labs/Diagnostic Data: Laboratory Results Test 05/10/24 12:13 05/10/24 05:25 05/09/24 06:20 05/09/24 04:00 POC Glucose 279 mg/dl (70-106) White Blood Count 3.4 10^3/uL (4.4-10.8) Red Blood Count 4.39 10^6/uL (4.5-5.90) Hemoglobin 13.3 g/dL (13.5-17.5) Hematocrit 39.3 % (41.0-53.0) Mean Corpuscular Volume 89.4 fL (80.0-100.0) Mean Corpuscular Hemoglobin 30.4 pg (28.0-32.0) Mean Corpuscular Hemoglobin Concent 34.0 g/dL (32.0-36.0) Red Cell Distribution Width 12.9 % (11.8-14.3) Platelet Count 116 10^3/uL (140-450) Mean Platelet Volume 8.3 fL (6.9-10.8) Neutrophils (%) (Auto) 44.7 % (37.0-80.0) Lymphocytes (%) (Auto) 43.5 % (10.0-50.0) Monocytes (%) (Auto) 8.6 % (0.0-12.0) Eosinophils (%) (Auto) 2.7 % (0.0-7.0) Basophils (%) (Auto) 0.5 % (0.0-2.0) Neutrophils # (Auto) 1.5 10 ^3/uL (1.6-8.6) Lymphocytes # (Auto) 1.5 10 ^3/uL (0.4-5.4) Monocytes # (Auto) 0.3 10 ^3/uL (0-1.3) Eosinophils # (Auto) 0.1 10 ^3/uL (0-0.8) Basophils # (Auto) 0 10 ^3/uL (0-0.2) Nucleated Red Blood Cells 0.1 % Sodium Level 136 mmol/L (136-145) Potassium Level 4.1 mmol/L (3.5-5.1) Chloride Level 103 mmol/L (98-107) Carbon Dioxide Level 25 mmol/L (20-31) Anion Gap 8 (5-15) Blood Urea Nitrogen 13 mg/dL (9-23) Creatinine 1.04 mg/dL (0.700-1.30) Glomerular Filtration Rate Calc 80 mL/min (>90) BUN/Creatinine Ratio 12.5 (10.0-20.0) Serum Glucose 167 mg/dL (74-106) Calcium Level 9.4 mg/dL (8.7-10.4) Magnesium Level 1.5 mg/dL (1.6-2.6) Troponin I High Sensitivity < 3 ng/L (</=54) Influenza Type A Antigen Positive (Negative) Influenza Type B Antigen Negative (Negative) Test 05/09/24 02:00 05/08/24 21:52 05/08/24 14:01 SARS-CoV-2 Antigen (Rapid) Negative (NEGATIVE) Erythrocyte Sedimentation Rate 16 mm/hr (0-20) Prothrombin Time 10.7 sec (9.3-11.8) Prothrombin Time INR 1.01 (0.9-1.15) Activated Partial Thromboplast Time 22.5 SEC (24.5-34.5) Hemoglobin A1c 11.0 % A1C (<5.7) C-Reactive Protein High Sensitivity 0.38 mg/dL (<1.0) Triglycerides Level 78 mg/dL (< 150) Cholesterol Level 138 mg/dL (< 200) LDL Cholesterol 79 mg/dL (< 100) HDL Cholesterol 49 mg/dL (40-59) Thyroid Stimulating Hormone (TSH) 1.73 uIU/mL (0.55-4.78) Urine Color Yellow (Yellow) Urine Clarity Clear (Clear) Urine pH 5.5 (5.0-9.0) Urine Specific Spring 1.024 (1.001-1.035) Urine Protein Trace (Negative) Urine Ketones Negative (Negative) Urine Blood Negative /uL (Negative) Urine Nitrite Negative (Negative) Urine Bilirubin Negative (Negative) Urine Urobilinogen Normal mg/dL (Negative) Urine Leukocyte Esterase Negative /uL (Negative) Urine RBC <1 /hpf (0 - 3) Urine Microscopic WBC 1 /HPF (0-3) Urine Squamous Epithelial Cells None seen /hpf (<5) Urine Bacteria None seen /hpf (None Seen) Urine Mucus Few (None Seen) Urine Glucose 3+ mg/dL (Normal) Total Bilirubin 0.5 mg/dL (0.2-1.0) Aspartate Amino Transferase (AST) 17 U/L (13-40) Alanine Aminotransferase (ALT) 23 U/L (7-40) Alkaline Phosphatase 82 U/L (46-116) Total Protein 6.9 g/dL (5.7-8.2) Albumin 4.7 g/dL (3.2-4.8) Other Laboratory Tests 05/10/24 05:25 Brief Hx & Hospital Course: This is a 63 years old male with past medical history of hypertension and hyperlipidemia come to emergency department because of heart palpitation and chest pain. The patient said that he had been sick due to upper respiratory infection two weeks prior to come to hospital. The patient feel dizzy, palpitation and chest pain. The patient was admitted. Workup was done.. The patient's troponin level three set is negative. The patient was seen by abrasive mixer's and subsequently had a Cardiolite stress test. The stress test showed: 1. Fixed defect in the inferior wall and inferior-apex that could represent prior infarction versus attenuation artifact. 2. Normal left ventricular systolic function. The patient also was found to have influenza A positive and was treated with Tamiflu and empiric with IV antibiotic Rocephin and Zithromax. The patient subsequently doing better. Today the patient did not complain of any shortness a breath or heart palpitation. So I am going to discharge the patient home. Advised the patient to follow up with primary care physician 1-2 weeks. Follow up with abrasive mixer per schedule. Activity as tolerated. Diet per home diet. Recommend low-salt low-cholesterol diet. Physical exam: HEENT: Normocephalic atraumatic pupils equal react to light and accommodation. Extraocular muscles intact, conjunctiva pink, oropharynx moist, no thrush, no exudate. Lymphatic: No lymphadenopathy Cardiovascular exam: S1, S2 was heard. No murmurs, rubs, gallops Lung: Clear on auscultation bilaterally, no wheeze, rale, rhonchi. GI: Abdominal soft, nondistended, nontenderness, positive bowel sounds. Extremity: No crepitus, cyanosis, edema. Pedal pulses present bilateral. Full range of motion. Skin: Normal turgor, no rash. Psych: Alert, oriented x3. Neurology: No focal deficits, cranial nerve II to XII grossly intact. This medical document was created using an electronic medical record system with [employer] direct computerized dictation system. Although this document has been carefully reviewed, there may still be some phonetic and typographical errors. These areas are purely typographical due to imperfections of the software programs, and do not reflect any compromise in the patient's medical care. Condition at Discharge: Stable Final Diagnosis/Problems List # atypical chest pain # palpitations likely due to dehydration with underlying influenza infection # influenza infection # uncontrolled type 2 diabetes mellitus with hyperglycemia # hypertension controlled # BPH # hypomagnesemia Discharge Disposition: Home Discharge Instruct/Medications Diet: Regular, Cardiac 2g Na,low cholest Activity: No Restrictions, As Tolerated Follow Up/Referral: pcp 1-2 weeks Medications: resume home meds Tamiflu 75 mg bid Discharge Statement: "Patient was advised to return to the ER or call 911 if any headaches, dizziness, shortness of breath, chest pain, abdominal pain, bleeding, fevers, or worsening of medical condition. Patient was counseled about treatment plan, medications, possible side effects, patientverbalized understanding. All questions were answered to the best of my ability. This discharge took greater then 30 minutes in planning, reviewing documentation, counseling the patient, and discussing with other team members." ASSESSMENT ASSESSMENT Assessment Influenza A, chest pain Date of Service: May 10, 2024 Billing Provider: PAIGE YUEN MD Common Visit Codes: 60494-YVW/OBS DISCH DAY >30min PAIGE YUEN MD May 10, 2024 15:32
== END 2024-05-10 18:30 | disposition home or self-care (01) | DRG 195 ==
LOC: ER 13:48 → TELE 20:59 → TELE-EAST 21:04 → TELE-CENTR 05-09 08:44 → CENTRAL 05-09 22:22
PROVIDERS: ADMIT Internal Medicine; ATTEND Emergency Medicine
DX: J10.1 Influenza due to other identified influenza virus with other respiratory manifestations (principal); I10 Essential (primary) hypertension; Z20.822 Contact with and (suspected) exposure to COVID-19; E11.65 Type 2 diabetes mellitus with hyperglycemia; N40.0 Benign prostatic hyperplasia without lower urinary tract symptoms; E78.5 Hyperlipidemia, unspecified; E83.42 Hypomagnesemia
CPT/HCPCS: 36415; 71045; 78452; 80048; 80053; 80061; 81001; 82962; 83036; 83735; 84443; 84484; 85025; 85610; 85652; 85730; 86141; 87081; 87426; 87804; 93005; 93017; 93306; G0378; J1815